=== PATIENT | male | born 1950 | race Caucasian/White ===

== ENCOUNTER 2018-06-07 11:21 | Emergency (ER) | payer MEDICARE ==
[2018-06-07 11:35] VITALS: RESP 18
--- NOTE | 2018-06-07 12:35 | ED ---
Lower Extremity Injury HPI - General Source: patient, RN notes reviewed, old records reviewed Mode of arrival: ambulatory Limitations: no limitations <Radha Tay - Last Filed: 06/07/18 14:12> <Jatinder Jacobs - Last Filed: 06/09/18 07:56> - General Chief Complaint: Extremity Injury, Lower Stated Complaint: Lumps on lower leg Time Seen by Provider: 06/07/18 11:48 - History of Present Illness Initial Comments: This is a 67-year-old male presents emergency Department chief complaint of left lower leg irritation and swelling over the medial calf. Patient reports that occurred yesterday after he was golfing. He states that he's had no history of blood clots. He reports that seems to be tender to palpation. Patient has had no shortness breath or chest pain. No history of blood clots. He denies any numbness or tingling, foot or leg. Denies any pain with range of motion of the knee. (Radha Tay) - Related Data Home Medications Medication Instructions Recorded Confirmed Ascorbic Acid [Vitamin C] 500 mg PO DAILY 06/07/18 06/07/18 Calcium Carbonate [Calcium] 600 mg PO DAILY 06/07/18 06/07/18 Wharton-3 Fatty Acids/Fish Oil [Fish 1 cap PO DAILY 06/07/18 06/07/18 Oil 1,000 mg Softgel] Terazosin [Hytrin] 5 mg PO HS 06/07/18 06/07/18 Ubidecarenone [Co Q-10] 100 mg PO DAILY 06/07/18 06/07/18 Zinc 50 mg PO DAILY 06/07/18 06/07/18 levETIRAcetam [Keppra] 500 mg PO TID 06/07/18 06/07/18 Allergies Allergy/AdvReac Type Severity Reaction Status Date / Time venom-honey bee Allergy Unknown Verified 06/07/18 11:45 [bee venom (honey bee)] Review of Systems ROS Other: All systems not noted in ROS Statement are negative. <Radha Tay - Last Filed: 06/07/18 14:12> ROS Other: All systems not noted in ROS Statement are negative. <Jatinder Jacobs - Last Filed: 06/09/18 07:56> ROS Statement: Those systems with pertinent positive or pertinent negative responses have been documented in the HPI. 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 Absent: scleral icterus, conjunctival injection, periorbital swelling ENT exam: Present: normal exam, mucous membranes moist Neck exam: Present: normal inspection. Absent: tenderness, meningismus, lymphadenopathy Respiratory exam: Present: normal lung sounds bilaterally. Absent: respiratory distress, wheezes, rales, rhonchi, stridor Cardiovascular Exam: Present: regular rate, normal rhythm, normal heart sounds. Absent: systolic murmur, diastolic murmur, rubs, gallop, clicks GI/Abdominal exam: Present: soft, normal bowel sounds. Absent: distended, tenderness, guarding, rebound, rigid Extremities exam: Present: normal inspection, full ROM, normal capillary refill. Absent: tenderness, pedal edema, joint swelling, calf tenderness Left Knee exam: Present: normal inspection, full ROM Lower Leg exam: Present: full ROM. Absent: normal inspection (Evidence of varicose veins.) Ankle exam: Present: normal inspection, full ROM Foot/Toe exam: Present: normal inspection, full ROM Neurovascular tendon exam: Present: no vascular compromise Gait: observed and normal Back exam: Present: normal inspection Neurological exam: Present: alert, oriented X3, CN II-XII intact Psychiatric exam: Present: normal affect, normal mood Skin exam: Present: warm, dry, intact, normal color. Absent: rash <Radha Tay - Last Filed: 06/07/18 14:12> <Jatinder Jacobs - Last Filed: 06/09/18 07:56> - General Exam Comments Initial Comments: Well-appearing 67-year-old male. (Radha Tay) Vital Signs 06/07/18 06/07/18 11:30 14:36 Temperature 98 F 98.1 F Pulse Rate 61 59 L Respiratory 18 18 Rate Blood Pressure 172/99 158/95 O2 Sat by Pulse 96 100 Oximetry Medical Decision Making - Radiology Data Radiology results: report reviewed <Radha Tay - Last Filed: 06/07/18 14:12> <Jatinder Jacobs - Last Filed: 06/09/18 07:56> - Medical Decision Making 67-year-old male comes emergency department today with concern for left calf swelling and irritation. Reports that he was golfing yesterday evening he started noticed there is some increased swelling today. He reports no pain rating of the leg. No peripheral paresthesias. He does have some minor area of swelling over the medial calf. The leg is not warm to painful to touch. Ultrasound was performed and negative for DVT. At this time ileus just a dependent flu collection or possibly a collapsed varicose vein. Patient understands treatment plan will comply. Discussed following up with primary care provider. All questions answered return parameters were discussed. ( Radha Tay) Resident/PA attestation: I, Dr. Jatinder Jacobs, personally saw and examined the patient. I have reviewed and agree with the resident/PA findings, including all diagnostic interpretations and treatment plans as written unless otherwise stated. I was present for the jensen portions of any procedures performed and inclusive time noted for any critical care statement. (Jatinder Jacobs) - Radiology Data No sonographic evidence for it deep venous her service with a left lower extremity. (Radha Tay) Disposition Is patient prescribed a controlled substance at d/c from ED?: No When asked, does pt state using other controlled substances?: No If prescribed controlled substance>3 days was MAPS reviewed?: No If opioid is for acute pain is fill amount 7 days or less?: No If Rx opioid, was Start Talking consent form obtained?: No Time of Disposition: 14:16 <Radha Tay - Last Filed: 06/07/18 14:12> <Jatinder Jacobs - Last Filed: 06/09/18 07:56> Clinical Impression: Left leg swelling, Varicose veins of legs Disposition: HOME SELF-CARE Condition: Good Instructions: Leg Edema (ED) Additional Instructions: Patient advised to monitor the area. He has severe swelling or any redness or pain and return for further evaluation. Follow-up with primary care physician. Return to emergency department if any alarming signs or symptoms occur. Patient should also use compression stockings that may help with varicose pain. Keep legs up and elevated. Referrals: García Sherman MD [Primary Care Provider] - 1-2 days
--- NOTE | 2018-06-07 14:04 | US ---
EXAMINATION TYPE: US venous doppler duplex LE LT DATE OF EXAM: 06/07/2018 1:53 PM COMPARISON: NONE CLINICAL HISTORY: Pain. bruising and mild swelling in left medial calf, no h/o dvt SIDE PERFORMED: Left TECHNIQUE: The lower extremity deep venous system is examined utilizing real time linear array sonog eliz with graded compression, doppler sonography and color-flow sonography. VESSELS IMAGED: External Iliac Vein (EIV) Common Femoral Vein Deep Femoral Vein Greater Saphenous Vein * Femoral Vein Popliteal Vein Small Saphenous Vein * Proximal Calf Veins (* superficial vessels) Grayscale, color doppler, spectral doppler imaging performed of the deep veins of the left lower extr emity. There is normal flow, compressibility, vascular waveforms. Left Leg: Appears negative for DVT IMPRESSION: No sonographic evidence of deep venous arthrosis within the left lower extremity.
[2018-06-07 14:38] VITALS: BP 158/95; PULSE 59; TEMP 98.1
== END 2018-06-07 14:36 | disposition home or self-care (01) ==
LOC: EC 11:21
DX: I83.892 Varicose veins of left lower extremity with other complications (principal); I10 Essential (primary) hypertension; G40.909 Epilepsy, unspecified, not intractable, without status epilepticus; Z91.030 Bee allergy status; Z79.899 Other long term (current) drug therapy
CPT/HCPCS: 99284

== ENCOUNTER → 2019-06-26 | Outpatient (CLI) | payer MEDICARE ==
--- NOTE | 2019-06-26 08:45 | US ---
EXAMINATION TYPE: US duplex aorta DATE OF EXAM: 06/26/2019 COMPARISON: NONE CLINICAL HISTORY: Abdominal aortic aneurysm, without rupture I71.4. Patient states no symptoms EXAM MEASUREMENTS: Abdominal Aorta: Proximal: 2.4 x 2.4cm Mid: 2.0 x 2.1cm Distal: 1.8 x 2.1cm Right Iliac: 1.4 x 1.5cm Left Iliac: 1.3 x 1.4cm No AAA seen at this time. IMPRESSION: No sonographic evidence of abdominal aortic aneurysm in the visualized abdominal aorta.
== END | disposition home or self-care (01) ==
LOC: RADUSWWP 07:27
PROVIDERS: ATTEND Internal Medicine Geriatric Medicine
DX: I71.4 Abdominal aortic aneurysm, without rupture (principal)
CPT/HCPCS: 93979

== ENCOUNTER → 2020-11-30 | Outpatient (CLI) | payer MEDICARE | END | disposition home or self-care (01) | LOC: LABWHC1 10:04 | PROVIDERS: ATTEND Psychiatry & Neurology Neurology | DX: G40.009 Localization-related (focal) (partial) idiopathic epilepsy and epileptic syndromes with seizures of localized onset, not intractable, without status epilepticus (principal) | CPT/HCPCS: 36415; 80177 ==